=== PATIENT | female | born 2000 | race African-American/Black ===

== ENCOUNTER 2023-08-14 07:35 | Emergency (ER) | payer SELFPAY ==
[2023-08-14] MEDS ORDERED: AMOXICILLIN 500 MG CAPSULE (FP) PO ONE (07:47)
[2023-08-14] MEDS ORDERED: IBUPROFEN 600 MG TABLET (FP) PO ONE (07:47)
[2023-08-14] MEDS ORDERED: AMOX TR/POT CLAV 500MG/125MG TABLETS (FP) ONE (08:05)
[2023-08-14 08:06] VITALS: BP 108/69; PULSE 90; RESP 16; TEMP 99.3; BMI 21.6
== END 2023-08-14 08:25 | disposition home or self-care (01) ==
LOC: FER 07:35
DX: J02.0 Streptococcal pharyngitis (principal); R68.83 Chills (without fever); Z20.822 Contact with and (suspected) exposure to COVID-19
CPT/HCPCS: 87651; 99283-25